=== PATIENT | male | born 1955 | race Caucasian/White ===

== ENCOUNTER 2023-07-25 16:45 | Inpatient (IN) | payer OTHER ==
[~2023-07-25] VITALS: Ht 188 cm; Wt 127.2 kg
[2023-07-25 18:15] LABS: BASOPHILS ABSOLUTE AUTO 0.04 K/mm3 (0.00-0.23); BASOPHILS PERCENT AUTO 0 % (0-2); EOSINOPHILS ABSOLUTE AUTO 0.01 K/mm3 (0.00-0.68); EOSINOPHILS PERCENT AUTO 0 % (0-6); Hematocrit 45.9 % (37.0-53.0); Hemoglobin 14.5 g/dL (13.5-17.5); IMMATURE GRAN ABSOLUTE AUTO 0.08 K/mm3 (0.00-0.10); IMMATURE GRAN PERCENT AUTO 1 % (0-1); LYMPHOCYTES ABSOLUTE AUTO 1.08 K/mm3 (0.84-5.20); LYMPHOCYTES PERCENT AUTO 7 % (21-46); MONOCYTES ABSOLUTE AUTO 1.09 K/mm3 (0.16-1.47); MONOCYTES PERCENT AUTO 7 % (4-13); Mean Corpuscular HGB 25.6 pg (26.0-34.0); Mean Corpuscular HGB Conc 31.6 g/dL (31.5-36.5); Mean Corpuscular Volume 81 fL (80-100); Mean Platelet Volume 12.5 fL (9.1-12.4); NEUTROPHILS ABSOLUTE AUTO 13.97 K/mm3 (1.96-9.15); NEUTROPHILS PERCENT AUTO 86 % (41-73); Platelet Count 173 K/mm3 (150-400); RDW Coefficient Variation 15.4 % (11.7-14.2); RDW Standard Deviation 44.9 fL (35.1-46.3); Red Blood Cell Count 5.66 M/mm3 (4.30-5.90); White Blood Cell Count 16.27 K/mm3 (4.00-11.30)
[2023-07-25 18:23] LABS: Albumin, Blood 4.1 g/dL (3.4-5.0); Albumin/Globulin Ratio 1.1 (0.8-1.8); Bilirubin, Total 0.7 mg/dL (0.1-1.0); Bun/Creatinine Ratio 8.5 (12.0-20.0); Calcium, Blood 9.1 mg/dL (8.5-10.1); Creatinine, Blood 1.64 mg/dL (0.60-1.20); Globulin, Blood 3.9 g/dL (2.2-4.0); Potassium, Blood 4.1 mmol/L (3.5-5.5)
[2023-07-25 21:06] LABS: Source, Urine Clean Catch
[2023-07-25] MEDS ORDERED: OMEP20ER PO (21:06)
[2023-07-25 21:09] LABS: Bilirubin, Urine Neg (Neg); Blood, Urine 2+ (Neg); Glucose Qualitative, Urine Neg (Neg); Ketones, Urine Neg (Neg); Leukocyte Esterase, Urine 1+ (Neg); Nitrite, Urine Pos (Neg); Protein, Urine 2+ (Neg); Specific Gravity, Urine 1.015 (1.003-1.022); Urobilinogen, Urine NORM (Normal)
[2023-07-25 21:18] LABS: Appearance, Urine Clear (Clear); Color, Urine Yellow (P-Yellow)
[2023-07-25 21:20] LABS: Bacteria Few /hpf; Red Blood Cells, Urine 0-2 /hpf (0-2); Squamous Epithelial Cells Not Seen /hpf (Few); White Blood Cells, Urine 0-2 /hpf (0-5)
--- NOTE | 2023-07-26 02:00 | NUR ---
NEW ADMIT. PT ARRIVED TO ROOM 302 VIA WHEEL CHAIR AND ONE PERSON ASSIST. PT ABLE TO TRANSFER WITH STEADY GAIT. NO FLUIDS OR OXYGEN ON ARRIVAL.
[2023-07-26 02:07] VITALS: BP 168/90
[2023-07-26 04:33] LABS: BASOPHILS ABSOLUTE AUTO 0.02 K/mm3 (0.00-0.23); BASOPHILS PERCENT AUTO 0 % (0-2); EOSINOPHILS PERCENT AUTO 0 % (0-6); Hematocrit 41.1 % (37.0-53.0); Hemoglobin 13.3 g/dL (13.5-17.5); IMMATURE GRAN ABSOLUTE AUTO 0.09 K/mm3 (0.00-0.10); IMMATURE GRAN PERCENT AUTO 1 % (0-1); LYMPHOCYTES ABSOLUTE AUTO 0.53 K/mm3 (0.84-5.20); LYMPHOCYTES PERCENT AUTO 3 % (21-46); MONOCYTES ABSOLUTE AUTO 1.01 K/mm3 (0.16-1.47); MONOCYTES PERCENT AUTO 6 % (4-13); Mean Corpuscular HGB Conc 32.4 g/dL (31.5-36.5); Mean Corpuscular Volume 80 fL (80-100); NEUTROPHILS ABSOLUTE AUTO 14.33 K/mm3 (1.96-9.15); NEUTROPHILS PERCENT AUTO 90 % (41-73); Platelet Count 142 K/mm3 (150-400); RDW Coefficient Variation 15.5 % (11.7-14.2); RDW Standard Deviation 44.4 fL (35.1-46.3); Red Blood Cell Count 5.12 M/mm3 (4.30-5.90); White Blood Cell Count 15.98 K/mm3 (4.00-11.30)
[2023-07-26 05:10] LABS: Albumin, Blood 3.5 g/dL (3.4-5.0); Bilirubin, Total 0.6 mg/dL (0.1-1.0); Creatinine, Blood 1.78 mg/dL (0.60-1.20); Globulin, Blood 3.4 g/dL (2.2-4.0); Magnesium, Blood 2.3 mg/dL (1.6-2.4); Potassium, Blood 3.9 mmol/L (3.5-5.5); Total Protein, Blood 6.9 g/dL (6.4-8.2)
--- NOTE | 2023-07-26 06:48 | NUR ---
SHIFT SUMMARY PT IS A&O X4. PT IS ABLE TO MAKE HIS NEEDS KNOWN. PT IS INDEPENDENT IN ROOM WITH STEADY GAIT. PT HAS IV INFUSING SEE EMAR. PT IS ON RA. PT DENIES CHEST PAIN/PRESSURE/TIGHTNESS. PT PAIN ASSESSED-PT DENIES PAIN. PT HAS SLEPT WELL T/O SHIFT SINCE ARRIVAL. BED IS LOCKED AND IN THE LOWEST POSITION WITH CALL LIGHT IN REACH. NO ACUTE CHANGES OR S/S OF DISTRESS NOTED.
[2023-07-26 07:13] VITALS: BP 132/65
[2023-07-26 12:24] VITALS: BP 123/68
[2023-07-26 15:41] VITALS: BP 140/60
--- NOTE | 2023-07-26 17:41 | NUR ---
SHIFT SUMMARY: PATIENT IS A/OX4. PLEASANT AND COOPERATIVE c CARE PROVIDED. PATIENT DENIES CP/PRESSURE, SOB, N/V AND DIZZINESS. PATIENT REPORTS L FLANK PAIN 6-8/10, MEDICATED c PRN PAIN MEDS PER EMAR c GOOD EFFECT. PATIENT IS EATING AND DRINKING WELL, CONTINENCE OF BLADDER AND AMBULATES TO BATHROOM INDEPENDENTLY. RECEIVED SCHEDULED MEDS PER EMAR. VITAL SIGNS REVIEWED. PIV TO LAC INFUSING NS AT 100 MLS/HR. CALL LIGHT IN REACH.
[2023-07-26 19:22] VITALS: BP 139/73
--- NOTE | 2023-07-26 20:56 | NUR ---
HOSPITALIST CALLED. CALLED DOUG DAS FOR PT TEMPERATURE OF 101.6 DEGREES FAHRENHEIT, PT C/O OF ACID REFLUX, AND THAT PT TAKES OMEPRAZOLE 20MG A DAY AT HOME FOR ACID REFLEX. DOUG DAS ORDERED FOR PT TO HAVE TUMS PRN-SEE EMAR, START OMEPRAZOLE 20MG STARTING 07/27/06, AND TWO SETS OF BLOOD CULTURES STAT. ORDERS IN AND CHANGES NOTED.
[2023-07-27 03:16] VITALS: BP 153/84
[2023-07-27 05:11] LABS: Bun/Creatinine Ratio 11.3 (12.0-20.0); Calcium, Blood 8.8 mg/dL (8.5-10.1); Creatinine, Blood 1.86 mg/dL (0.60-1.20)
[2023-07-27 05:53] LABS: BASOPHILS ABSOLUTE AUTO 0.02 K/mm3 (0.00-0.23); BASOPHILS PERCENT AUTO 0 % (0-2); EOSINOPHILS PERCENT AUTO 0 % (0-6); Hematocrit 36.5 % (37.0-53.0); Hemoglobin 11.9 g/dL (13.5-17.5); IMMATURE GRAN ABSOLUTE AUTO 0.07 K/mm3 (0.00-0.10); IMMATURE GRAN PERCENT AUTO 1 % (0-1); LYMPHOCYTES ABSOLUTE AUTO 0.85 K/mm3 (0.84-5.20); LYMPHOCYTES PERCENT AUTO 8 % (21-46); MONOCYTES ABSOLUTE AUTO 1.27 K/mm3 (0.16-1.47); MONOCYTES PERCENT AUTO 11 % (4-13); Mean Corpuscular HGB 25.9 pg (26.0-34.0); Mean Corpuscular HGB Conc 32.6 g/dL (31.5-36.5); Mean Corpuscular Volume 80 fL (80-100); NEUTROPHILS ABSOLUTE AUTO 9.05 K/mm3 (1.96-9.15); NEUTROPHILS PERCENT AUTO 80 % (41-73); Platelet Count 109 K/mm3 (150-400); RDW Coefficient Variation 15.7 % (11.7-14.2); RDW Standard Deviation 44.8 fL (35.1-46.3); Red Blood Cell Count 4.59 M/mm3 (4.30-5.90); White Blood Cell Count 11.26 K/mm3 (4.00-11.30)
[2023-07-27 05:56] LABS: Mean Platelet Volume 13.4 fL (9.1-12.4)
--- NOTE | 2023-07-27 06:12 | NUR ---
SHIFT SUMMARY PATIENT A&O X4. PLEASANT, CALM, COOPERATIVE WITH CARE, ABLE TO MAKE NEEDS KNOWN AND CALLS APPROPRIATELY. PATIENT REPORTS HAVING DECREASED URINE OUTPUT, INCREASED PAIN TO LEFT FLANK, SLIGHT INCREASE IN SOB, AND SWELLING TO BUE, BLOATING IN THE ABDOMEN, AND TIGHTNESS IS BLE-HOSPITALIST CALLED SEE NOTES. HAT PLACE TO COLLECT URINE. PATIENT REPORTS THAT THIS KIDNEY STONE FEELS ALOT LIKE HIS PREVIOUS KIDNEY STONE THAT HAD TO BE REMOVED. PATIENTS LUNG SOUNDS CLEAR. AFTER FLUIDS STOPPED SWELLING HAS GONE DOWN IN BUE-PATIENT BAND IS LOOSER AND ABLE TO MOVE DOWN HIS ARM SOME. DENIES CHEST PAIN/PRESSURE/TIGHTNESS. BED IS LOCKED IN THE LOWEST POSITION WITH CALL LIGHT IN REACH.
[2023-07-27 07:36] VITALS: BP 136/65
--- NOTE | 2023-07-27 09:35 | NUR ---
NOTE: PATIENT REPORTS L FLANK PAIN 8-06/08, MEDICATED c PO PRN 10 MG OXYCODONE c NO EFFECT. CALLED DR. GUEVARA REGARDING THIS ISSUE. RECEIVED ORDER TO GIVE OT DOSE 1 MG IV DILAUDID.
[2023-07-27 16:18] VITALS: BP 140/71
--- NOTE | 2023-07-27 17:45 | NUR ---
SHIFT SUMMARY: AT BEGINNING OF SHIFT PATIENT REPORTS SIGNIFICANT L FLANK PAIN 8-10/10. PER PATIENT AFTER HE RECEIVED PO DILAUDID AND OT DOSE OF IV TORADOL PAIN IS ABOUT 1-2/10. PATIENT HAD RENAL ULTRASOUND DONE TODAY c RESULT. RECEIVED OT DOSE OF IV LASIX. PATIENT IS CONTINENCE OF BLADDER AND HAS BEEN AMBULATING TO BATHROOM INDEPENDENTLY T/O SHIFT. NO BM TODAY. PATIENT REFUSED BREAKFAST, LUNCH AND ATE 50% FOR DINNER. PATIENT DENIES CP/PRESSURE, SOB, N/V, AND DIZZINESS. AFEBRILE. VITAL SIGNS REVIEWED. PIV TO LAC INFUSING NS AT 100 MLS/HR. CALL LIGHT IN REACH.
[2023-07-27 19:55] VITALS: BP 154/88
--- NOTE | 2023-07-27 23:30 | NUR ---
CALLED HOSPITALIST DOUG DAS. HOSPITALIST CALLED REGARDING PT PAIN 9/10 UNRELIEVED BY PRN DILAUDID-SEE EMAR AND AN INCREASE IN PAIN. DOUG DAS, ORDERED A ONE TIME DOSE OF 1MG IV DILAUDID-PT REPORTS ALMOST IMMEDIATE DECREASE IN PAIN FROM A 10/10 TO A 4/10 TO WHICH HE STATES IS "DOABLE". DOUG DAS, INFORMED OF PT HAVING NAUSEA AND VOMITTING UNRELIEVED BY ORDERED PRN ZOFRAN-SEE ORDER/EMAR. DOUG DAS, ORDERED FOR REGLAN 5MG IV Q6 HOURS FOR NAUSEA AND VOMITING.
[2023-07-28 03:14] VITALS: BP 143/75
--- NOTE | 2023-07-28 03:49 | NUR ---
PT CALLED WITH C/O LEFT FLANK PAIN. PO DILAUDID GIVEN PER EMAR AND A HEATING PAD APPLIED TO LEFT FLANK AREA.
--- NOTE | 2023-07-28 04:48 | NUR ---
SHIFT SUMMARY PATIENT IS A&O X4. PATIENT PLEASANT AND COOPERATIVE WITH CARE. PATIENT ABLE TO MAKE HIS NEEDS KNOWN. DENIES CHEST PAIN/PRESSURE/TIGHTNESS. PATIENTS PAIN ASSESSED-NO RELIEF WITH ORAL DILAUDID-SEE EMAR. DOCTOR CALLED AND ORDERED ON TIME DOSE 1MG IV OF DILAUDID-SEE ORDERS TO WHICH PATIENT REPORTED EASED THE PAIN. PATIENT GIVEN HEATING PAD TO AID IN COMFORT WITH NO CHANGE IN PAIN LEVEL. PATIENT IS URINATING INTO A HAT TO BE ABLE TO MONITOR FOR POTENTIAL PASSAGE OF KIDNEY STONE. PATIENT IS UP INDEPENDENTIN ROOM. BED IS LOCKED IN THE LOWEST POSITION WITH CALL LIGHT IN REACH.
[2023-07-28 04:57] LABS: BASOPHILS ABSOLUTE AUTO 0.02 K/mm3 (0.00-0.23); BASOPHILS PERCENT AUTO 0 % (0-2); EOSINOPHILS ABSOLUTE AUTO 0.02 K/mm3 (0.00-0.68); EOSINOPHILS PERCENT AUTO 0 % (0-6); Hematocrit 37.3 % (37.0-53.0); Hemoglobin 12.3 g/dL (13.5-17.5); IMMATURE GRAN ABSOLUTE AUTO 0.11 K/mm3 (0.00-0.10); IMMATURE GRAN PERCENT AUTO 1 % (0-1); LYMPHOCYTES ABSOLUTE AUTO 1.09 K/mm3 (0.84-5.20); LYMPHOCYTES PERCENT AUTO 11 % (21-46); MONOCYTES ABSOLUTE AUTO 1.07 K/mm3 (0.16-1.47); MONOCYTES PERCENT AUTO 11 % (4-13); Mean Corpuscular HGB 25.9 pg (26.0-34.0); Mean Corpuscular Volume 79 fL (80-100); Mean Platelet Volume 12.7 fL (9.1-12.4); NEUTROPHILS ABSOLUTE AUTO 7.59 K/mm3 (1.96-9.15); NEUTROPHILS PERCENT AUTO 77 % (41-73); Platelet Count 121 K/mm3 (150-400); RDW Coefficient Variation 15.5 % (11.7-14.2); RDW Standard Deviation 43.9 fL (35.1-46.3); Red Blood Cell Count 4.75 M/mm3 (4.30-5.90)
[2023-07-28 05:50] LABS: Bun/Creatinine Ratio 13.1 (12.0-20.0); Calcium, Blood 8.9 mg/dL (8.5-10.1); Creatinine, Blood 1.68 mg/dL (0.60-1.20); Potassium, Blood 3.5 mmol/L (3.5-5.5)
--- NOTE | 2023-07-28 06:11 | NUR ---
DR. BOLTON CONTACTED. PATIENT HAS UNRELIEVED PAIN THAT HAS WORSENED AFTER PO PAIN MEDICATION, DR. INGRAM ORDERED FOR A ONE TIME DOSE OF 0.5MG IV DILAUDID.
[2023-07-28 07:35] VITALS: BP 135/69
[2023-07-28 15:06] VITALS: BP 113/69
--- NOTE | 2023-07-28 16:05 | NUR ---
SHIFT SUMMARY; PATIENT COMPLAINS OF MUCH PAIN DURING DAY. CHANGED PO DILAUDID TO IV DILAUDID AND ONE TIME ORDER OF TORADOL 15MG. PATIENT EXPRESSED ALMOST IMMEDIATE RELIEF FROM PAIN. CT ORDERED AND PATIENT TAKEN DOWN TO IMAGING. 3MM STONES ARE NOTED AND PER STILL NEED TO PASS. PAITENT REMAINS ON 100ML/HR FLUIDS. VSS AND PATIENT HAS PLEASANT AFFECT AND COOPERATIVE WITH CARE. NO SKIN ISSUES. LUNGS ARE CLEAR TO AUSCULTATION. CALL LIGHT IN REACH. WILL CONTINUE TO MONITOR THIS PATIENT UNTIL REPORT AND HAND OFF TO NOC SHIFT RN.
[2023-07-28 19:15] VITALS: BP 119/72
[2023-07-29 03:45] VITALS: BP 141/85
--- NOTE | 2023-07-29 03:45 | NUR ---
END OF SHIFT SUMMARY PT A&O x4, VSS, AFEBRILE. PT PLEASANT AND COOPERATIVE WITH CARE PROVIDED. PT SLEPT ON AND OFF THROUGHOUT THE NIGHT. LUNGS CTA, RESP RATE EVEN AND UNLABORED. PAIN MANAGED WITH PRN IV DILAUDID, WHICH WAS EFFECTIVE, HE WAS ABLE TO SLEEP WELL. NO C/O NAUSEA/VOMITING. PT ABLE TO MAKE NEEDS KNOWN. CALL LIGHT WITHIN REACH, WCTM.
[2023-07-29 07:48] VITALS: BP 137/70
[2023-07-29 09:06] LABS: Calcium, Blood 8.6 mg/dL (8.5-10.1); Creatinine, Blood 1.57 mg/dL (0.60-1.20); Potassium, Blood 3.5 mmol/L (3.5-5.5)
[2023-07-29 15:03] VITALS: BP 138/79
--- NOTE | 2023-07-29 16:58 | NUR ---
SHIFT SUMMARY; PATIENT HAD NO ACUTE CHANGES IN CONDITION DURING SHIFT. HE WAS MEDICATED FOR PAIN X 3 TODAY. MEDICATED WITH HYDROMORPHONE 2MG IVP WITH GOOD RESULTS. PATIENT STILL RECEIVING 100ML/HR NS IV. VSS.
[2023-07-29 19:10] VITALS: BP 132/79
[2023-07-30 04:37] VITALS: BP 148/82
--- NOTE | 2023-07-30 04:41 | NUR ---
SHIFT SUMMARY NOC PT A/O X 4. PLEASANT AND COOPERATIVE WITH CARE. PT CONTINUES TO HAVE CONSTANT L FLANK PAIN DUE TO URETER OBSTRUCTION. PT PAIN HAS BEEN MANAGED PER EMAR WITH IV DILAUDID. PT URINE FLOW PER PT SEEMS TO BE POSITIONAL WITH KIDNEY STONE MOVING BACK AND FORTH BLOCKING URINE FLOW. PT HAS INFUSION OF NS @ 100 ML/HR FOR HYDRATION, AND TO IMPROVE KIDNEY FUNCTION. PT WILL BE FOLLOWING UP OUT PATIENT WITH REGULAR UROLOGIST BACK HOME IN [place] AFTER DISCHARGE FOR FURTHER INTERVENTIONS. PT IS CURRENTLY RESTING WITH BED IN LOWEST POSITION, AND CALL LIGHT WITHIN REACH.
[2023-07-30 07:53] VITALS: BP 141/78
[2023-07-30 14:57] VITALS: BP 141/86
--- NOTE | 2023-07-30 17:57 | NUR ---
SHIFT SUMMARY PT HAD POOR PAIN MANAGMENT THIS AM WITH IV PAIN MEDS ALONE. AFTER ADDING IN A PO DOSE OF DILADID, PTS PAIN DOWN TO 5/10 AND PATIENT SHOWERED. PT RESISTANT TO PO MEDICATION, STATING IT DOESNT WORK FAST. EDUCATION ABOUT HOW IV AND PO PAIN MEDS WORK AND THE BENEFITS OF USING THE PO MEDS, ESPECIALLY WITH A PLANNED DC TOMORROW. NO OTHER ACUTE CHANGES IN ASSESSMENT AT THIS TIME. VS REVIEWED. CALL LIGHT IN REACH. PT ON BEDSIDE, EATING DINNER. DENIES OTHER NEEDS AT THIS TIME.
[2023-07-30 20:04] VITALS: BP 159/85
[2023-07-31 04:23] VITALS: BP 135/76
--- NOTE | 2023-07-31 05:01 | NUR ---
SHIFT SUMMARY PT SITTING UP IN BED DURING BEDSIDE ROUNDS, NEW IV STARTED BY TEMITOPE MENSAH RN- INFUSING WITHOUT PROBLEMS, PT REPORTED PAIN IS CONSTANT AND ENCOURAGED PT TO NOTIFY WHEN WORSENS, RT APPLIED YARDAGE CONTROL OPERATOR FORMING D/T NARCOTICS- PT O2 SATS WNL T/O NIGHT, MEDICATED PT T/O NIGHT WITH IV DILAUDID- OFFERED THE DILAUDID PO AND INFORMED PT OF LEAVING IN AM WITH NO MORE IV MEDICATIONS, PT REPORTED THAT THE PLANS ON ORDERING TORADOL INJECTION BEFORE DISCHARGE AND HAS A CONCRETE ENGINEERING TECHNICIAN D/T NARCOTICS- PT REPORTS THE PAIN TOO MUCH TO HANDLE AND THE PO MEDICATION DOESN'T GIVE HIM ENOUGH RELIEF- PT AMBULATED TO BR SEVERAL TIMES IN THE NIGHT- IV FLUIDS INFUSING PER ORDER- CALL LIGHT WITHIN REACH
[2023-07-31 07:31] VITALS: BP 155/77
[2023-07-31] MEDS ORDERED: OMEP20ER PO (10:23)
[2023-07-31] MEDS ORDERED: Acetaminophen650 M1 (10:23)
[2023-07-31] MEDS ORDERED: DOCU100 PO (10:24)
[2023-07-31] MEDS ORDERED: HYDMOR2 PO (10:24)
[2023-07-31] MEDS ORDERED: NIFE30ER PO (10:24)
[2023-07-31] MEDS ORDERED: SENN187 PO (10:24)
[2023-07-31] MEDS ORDERED: FLOMAX0.4 MG PO (10:25)
[2023-07-31] MEDS ORDERED: ONDA4ODT MM (10:25)
--- NOTE | 2023-07-31 11:44 | NUR ---
DISCHARGE NOTE PT DISCHARGE TO HOME, PICKED UP BY HIS FRIENDS. IV REMOVED. DISCHARGE INFORMATION AND EDUCATION PROVIDED. MEDICATIONS FAXED TO THE PHARMACY OF HIS CHOICE, HARD SCRIPT PROVIDED TO PT.
== END 2023-07-31 11:43 | disposition home or self-care (01) | DRG 690 ==
LOC: ER 16:45 → MEDS 16:46
PROVIDERS: Emergency Medicine; Internal Medicine; ADMIT Student in an Organized Health Care Education/Training Program
DX: N13.6 Pyonephrosis (principal); N17.9 Acute kidney failure, unspecified; N18.30 Chronic kidney disease, stage 3 unspecified; B95.8 Unspecified staphylococcus as the cause of diseases classified elsewhere; R31.9 Hematuria, unspecified; Z88.5 Allergy status to narcotic agent; Z79.899 Other long term (current) drug therapy; Z98.890 Other specified postprocedural states; Z87.442 Personal history of urinary calculi
CPT/HCPCS: 36415; 74176; 74177; 76770; 80048; 80053; 81001; 83735; 85025; 87040; 87077; 87086; 87186; 94762; 96365; 96375; 99285-25; A9270; J0696; J1170; J1650; J1885; J1940; J2405; J2765; J3370; J7030; J7050; Q9967